=== PATIENT | female | born 1975 | race Caucasian/White ===

== ENCOUNTER 2024-06-12 06:21 | Day surgery (SDC) | payer OTHER, SELFPAY ==
[2024-05-31 09:27] VITALS: BMI 32.3
[2024-05-31 10:37] LABS: % Basophils 0.4 % (0-2); % Eosinophils 3.4 % (0-6); % Immature Granulocytes 0.3 % (0-0.5); % Lymphocytes 29.9 % (20.5-51.1); % Monocytes 10.4 % (1.7-9.3); % Neutrophils 55.6 % (42.2-75.2); Absolute Eosinophils 0.2 10^3/uL (0-0.7); Absolute Monocytes 0.7 10^3/uL (0.1-0.6); Absolute Neutrophils 3.7 10^3/uL (1.4-6.5); Hematocrit 41.3 % (37.0-47.0); Hemoglobin 13.7 g/dL (12.0-16.0); Mean Corp Hgb Conc. 33.2 g/dL (33.0-37.0); Mean Corpuscular Hgb 29.9 pg (27.0-31.0); Mean Corpuscular Volume 90.2 fL (81.0-99.0); Nucleated Red Blood Cells % 0 %; Platelet Count 257 10^3/uL (130-400); Red Blood Cell Count 4.58 10^6/uL (4.20-5.40); Red Cell Dist. Width 13.1 % (11.5-14.5); White Blood Cell Count 6.7 10^3/uL (4.8-10.8)
[2024-05-31 11:21] LABS: ALT (SGPT) 28 U/L (0-35); AST (SGOT) 21 U/L (14-36); Albumin 4.3 g/dl (3.5-5.0); Alkaline Phosphatase 79 U/L (38-126); Blood Urea Nitrogen 19 mg/dl (7-17); Carbon Dioxide 24 mmol/L (22-30); Chloride 108 mmol/L (98-107); Estimated Creatinine Clearance 99 ml/min; Glucose 108 mg/dl (70-99); Potassium 4.5 mmol/L (3.5-5.1); Sodium 143 mmol/L (135-145); Total Bilirubin 0.5 mg/dl (0.2-1.3); Total Protein 6.7 g/dl (6.3-8.2); eGFR > 60.00
--- NOTE | 2024-06-10 19:50 | HPS.HSE ---
Family Physician
-
Family Physician: Radha Alcaraz DO
Chief Complaint
-
postmenopausal bleeding
History of Present Illness
This�patient�has�a�diagnosis�of�stage�I�A2�adenoid�basal�carcinoma�of�the�cervix�treated�conservatively�with�LEEP�followed�by�cone biopsy�in�May�and�Tammi�2002.�The�patient�has�subsequently�had�cervical�cerclage�placement�and�2�successful�pregnancies
Interval�History she�presents�to�office�complaining�of�3�days�of�menstrual�like�bleeding�last�2�months.�she�still�has�intermittent�hotflashes.� she�idenies�any�new�medical�problems. appetite�,�bladder�and�bowel�functions�ok.�
she�is�not�sexually�active�last�few�months,�lost�desire�due�to�menopausal�issues �������������������������� This�patient�returns�back�to�the�office�today,�she�does�not�have�any�vaginal�bleeding.
She�continues�to�have�vasomotor�symptoms�suggestive�of�menopause. I�evaluated�her�with�ultrasound,�and�uterus�was�not�well�visualized�transabdominally�secondary�to�technical�factors�but�measured
7.1�x�3.3�x�4�cm,�endometrium�was�3�mm.�Left�ovary�was�not�visualized�there�is�a�history�of�right�oophorectomy. MRI�of�pelvis�was�done�with�and�without�contrast,�uterus�is�small�measuring�10.8�x�4.2�x�4.3,�contiguously�of�the�anterior�uterus
with�posterior�aspect�of�the�abdominal�wall�indicates�presence�of�adhesions.�Myometrium�is�8�mm.�Endometrium�is�3�mm.�Left ovary�has�a�10�mm�ovarian�cyst.�Lymph�nodes�were�evaluated�and�noted�to�be�1.3�cm�along�the�right�external�iliac�and�1.2�cm�on
the�left�internal�obturator�region.�There�is�no�evidence�of�cervical�masses�and�there�is�no�evidence�of�metastatic�disease�in�the pelvis.
Medical History
Past Medical History
Past Medical History: Reports Other (Cancer of cervix)
Past Surgical History: Reports Other (cone biopsy, abdominal cerclage, c sections)
Additional Past Surgical History:
Social History
Patient denies ever using tobacco.
Social use of alcohol.
Denies any illicit drug use.
Occupational Status: Current: dental hygenist.
Patient has not had any occupational exposure.
Marital Status: Patient is with 2 child/children.
Gynecological History
Age at Menarche 8 years. Age at menopause: 46 years. Patient reports 3 pregnancies. Her age at first full term was 29
years.
No history of hormone replacement therapy.
Patient Reported Level of Pain
Pain: no pain.
Treatment Recommendations for Pain
Continue current pain regimen.
Review Of Systems
The review of 12 systems is negative except as outlined in history of present illness.
Social History
Tobacco: Non-smoker
Alcohol: Occasional
Drug: None
Personal:
Living: With Family
Employment: Employed
Family History
Family History: Not pertinent
Allergies / Home Medications
Allergies reflects when Allergies were last updated in [facility].
Home Medications with original date entered in [facility]
Allergy/Medication List:
No�Known�Drug�Allergies
Review of Systems
-
A 12 point ROS was completed and negative except as noted: Yes
Physical Exam
Vital Signs
Physical�Exam Pelvic�Examination: External�normal�labia,�urethra,�anus.� Vagina:�Normal�mucosa.� Cervix:�normal�appearance,�no�discharge.�scarred�os�and�unable�to�identify�a�os,�no�gross�lesion�seen Uterus:�normal�size.� Adnexa:�No�pelvic�mass.�
RVE:�no�masses�or�nodularity
General:�Well�developed,�well�nourished�patient.�In�no�acute�distress.
Neck:�No�thyromegaly.�No�cervical�lymphadenopathy.
Lungs:�Clear�to�auscultation.�Good�air�movement�bilaterally.
Cardiac:�Regular�rate.�Regular�rhythm.�No�murmurs�appreciated.
Right�Breast:�No�masses�or�dimpling.�No�nipple�discharge. Left�Breast:�No�masses�or�dimpling.�No�nipple�discharge. Abdomen:�Abdomen�is�soft.�Non�tender�to�palpation.�Non�distended.
Extremities:�No�edema. Hematologic/Lymphatic:�No�palpable�lymphadenopathy. Musculoskeletal:�Normal�range�of�motion.�Strength�and�Tone�are�normal.
Skin:Non�jaundiced.�No�petechia.�No�purpura.
Neurologic:�Speech�is�fluent.�Normal�gait�and�station.�Cranial�nerves�intact.
Physical Exam
HEENT: NormoCephalic
Respiratory: Clear and Non Labored Respirations
Cardiac: S1/S2, Regular Rhythm and Irregular Rhythm
GI: Soft, Non Tender and Non Distended
Musculoskeletal: No Clubbing, No Cyanosis and No Edema
Skin: Warm and Dry
Neuro: Awake, Alert, Oriented and No Motor Deficits
Hematologic/Lymphatic: No Lymphadenopathy
Psych: Calm and Intact Judgment/Insight
Laboratory Results
-
05/31/24 08:24
05/31/24 08:24
Laboratory Results
Total Bilirubin 0.5 mg/dl (0.2-1.3) 05/31/24 08:24
AST 21 U/L (14-36) 05/31/24 08:24
ALT 28 U/L (0-35) 05/31/24 08:24
Alkaline Phosphatase 79 U/L (38-126) 05/31/24 08:24
Impression/Plan
-
IMPRESSION:
At�this�point�radiologic�imaging�from�MRI�as�well�as�ultrasound�does�not�show�a�significant�or�concerning�problem Patient�has�the�option�to�continue�observation�and�surveillance�versus�consideration�of�removing�the�uterus�and�cervix�for�definitive
management Her�FSH�is�elevated�and�she�definitely�had�postmenopausal�bleeding�and�the�etiology�is�unclear�as�of�right�now My�suspicion�is�that�the�etiology�may�be�still�ovulation�resulting�in�menstruation
After�discussion�back�and�forth�and�reviewing�pros�and�cons�she�has�opted�to�proceed�with�definitive�surgery,�we�will�set�her�up�for robotic�assisted�total�laparoscopic�hysterectomy,�bilateral�salpingo�oophorectomy.�
She�understands�that�there�is�going�to�besignificant�adhesions�involving�anterior�abdominal�wall�as�well�as�bladder�and�the�risk�of�injury�to�the�bladder�is�higher�than�usual�for her.�Other
Risks�including�infection�bleeding�injury�to�adjacent�organs�DVT�pulmonary�embolism�and�cardiovascular�complications�were discussed�and�reviewed.
PLAN:
[2024-06-12] VITALS (11 sets, daily range): BP systolic 100–130; BP diastolic 54–97; BMI 32.3
[2024-06-12] MEDS: TYLENOL 1000 MG PO (07:00)
[2024-06-12] MEDS: CELEBREX 200 MG PO (07:00)
[2024-06-12] MEDS: HEPARIN 5000 UNITS SC (07:00)
[2024-06-12] MEDS: NEURONTIN 300 MG PO (07:00)
--- NOTE | 2024-06-12 09:32 | OR.RPT ---
Operative Report
Operative Report
Date of procedure: June 12, 2024
preoperative diagnosis postmenopausal bleeding, history of cervical cancer, cervical stenosis with inability to sample endometrial cavity
Postoperative diagnosis: Same plus extensive intra-abdominal uterine and omental adhesion
Anesthesia: General Endotracheal intubation
Procedure:
Robotic assisted total laparoscopic hysterectomy, bilateral salpingo-oophorectomy
Injection of cervix with ICG dye for mapping and identification of bilateral sentinel lymph nodes
Robotic assisted laparoscopic sentinel lymph node excision
Robotic assisted laparoscopic extensive adhesiolysis
Tap block
Surgeon: Yossi Linda MD
Assist: Elliot Johnson PA-C & Flo CROUCH
Estimated blood loss 100 cc
Urine output: 300 cc
Complications: None
Procedure in detail: This patient is brought to the operating room for definitive management of postmenopausal bleeding. She has a prior history of adenoid basal cell carcinoma of the cervix status post multiple colon biopsies, has a prior history
of cervical incompetence managed with abdominal cerclage and has had 2 prior C-sections and abdominoplasty. Over the last few years cervix has been inaccessible due to significant scarring. The patient had episodes of postmenopausal bleeding this
year, we were unable to perform endometrial sampling, imaging was generally reassuring. This procedure is performed to definitively exclude possibility of recurrent cervical cancer or new endometrial pathology. She has had a prior excision of her
right ovary. Upon arrival to the operating room she was placed in supine position, general anesthesia was administered, she was intubated without any difficulty, she was placed in lithotomy position using yellowfin stirrups and her arms were
wrapped in foam and protected and later along her sides. She was prepped on the abdomen and perineum and vagina and she was draped. She had timeout procedure and received appropriate IV antibiotics and DVT prophylaxis including heparin
subcutaneous injection. Calzada catheter was placed in the bladder for drainage under sterile conditions. I attempted to grasped the anterior lip of the cervix or possibly part of the vagina, I was able to cannulate what I thought was cervical canal
but it was really not successful I placed the uterine manipulator after injection of the cervix with ICG dye at 3 and 9:00 specifically at the 5 mm and 10 mm stations. Next our attention was turned abdominally. Veress needle was inserted just
below the right subcostal margin and insufflation with CO2 gas was performed up to pressure of 15 mmHg. 8 mm XI robotic port was inserted approximately 20 cm cephalad to symphysis pubis into the peritoneal cavity. Visualization of the upper
abdomen reveals spleen stomach omentum right and left diaphragm and liver to be within normal limits. I went ahead and placed 8 mm robotic ports in the right and left upper and lateral aspects of the abdomen. Mixture of ropivacaine and Decadron
was injected as a tap block 2 fingerbreadths below the subcostal margin on right and left sides as well as lateral mid abdomen right and left sides. This was done under direct visualization. Once this was completed the patient was placed in
Trendelenburg 28 degrees and robotic system was docked. We took down the adhesions of the omentum to the anterior abdominal wall as well as the left colon to left pelvis and noted that the uterus was completely adherent to the anterior abdominal
wall. I open right and left pelvic sidewalls, we identified the round ligaments after exploration of the retroperitoneum and these were sealed and divided the course of the ureter was identified bilaterally, infundibulopelvic ligaments were
identified bilaterally and they were isolated sealed 3 times. Bipolar cautery and divided. Next using near infrared system and lighting we identified lymph node along the left external iliac artery and this was excised and submitted as sentinel
lymph node to pathology. On the right side the mapping was erroneous and no lymph nodes were removed. Next we took down the adhesions of the uterus to the anterior abdominal wall and attempted to enter the vesicouterine space. The bladder was
backfilled with approximately 300 cc and this aided in identification of bladder and it from the lower aspect of the uterus and the cervix and we took this down below the level of the cervix on the anterior aspect of the vagina. Uterine
arteries were skeletonized sealed 3 times and divided. Uterosacral ligaments were sealed and divided. The uterine manipulator had been actually inadvertently inserted just below the cervix in the posterior cul-de-sac and this was removed. We went
ahead and placed a sponge stick in the vagina and once the vagina was adequately mobilized and from bladder colpotomy was performed and the specimen including uterus cervix right fallopian tube and adnexal vessels as well as left fallopian
tube and ovary were removed through the vagina. Good hemostasis was established. I used a 0 Vicryl suture ligature to close the vaginal cuff in both apices and establish good hemostasis and also incorporated uterosacral ligaments for support.
V-Loc suture was used to close the vaginal cuff otherwise in a bidirectional fashion. We examined all operative sites and good hemostasis had been established. We irrigated the pelvis copiously and then removed all instruments. Pneumoperitoneum
was released. All skin incisions were closed with 4-0 Monocryl in a subcuticular fashion. The vagina was inspected and there was no lacerations or bleeding. Calzada catheter was removed. Patient was awakened extubated and returned back to
recovery room stable awake and extubated condition. Counts of laps instruments and needle was correct x 2. I was present and scrubbed for entire procedure as dictated above. Please note that this case was much more challenging and difficult then
routine hysterectomy because of the number of prior procedures that the patient has had causing extensive adhesions in the anterior cul-de-sac and necessitating extensive adhesiolysis.
Disposition: To PACU stable awake extubated
[2024-06-12] MEDS: TORADOL 15 MG IV (11:26)
== END 2024-06-12 13:30 | disposition home or self-care (01) ==
LOC: SDS 06:21
PROVIDERS: ATTENDING PHYSICIAN Obstetrics & Gynecology Gynecologic Oncology; FAMILY PHYSICIAN Family Medicine
DX: N84.1 Polyp of cervix uteri (principal); N80.03 Adenomyosis of the uterus; N88.2 Stricture and stenosis of cervix uteri; K66.0 Peritoneal adhesions (postprocedural) (postinfection); N95.0 Postmenopausal bleeding; Z85.41 Personal history of malignant neoplasm of cervix uteri
CPT/HCPCS: 58571; 38900; 38570; 88307; 88309; 36415; 80053; 85025; 86850; 86900; 86901; 88342